=== PATIENT | female | born 1950 | race Caucasian/White ===

== ENCOUNTER 2018-06-16 08:46 | Day surgery (SDC) | payer MEDICARE ==
[2018-06-16] MEDS ORDERED: LIDOCAINE 2% INJ 100 MG/5 ML SDV (FOR ANES.) As Ordered (10:09)
[2018-06-16] MEDS ORDERED: fentaNYL 100 MCG/2 ML INJECTION (J3010) As Ordered (10:09)
[2018-06-16] MEDS ORDERED: PROPOFOL 200 MG/20 ML VIAL As Ordered ×2 (10:10)
== END 2018-06-16 11:24 | disposition home or self-care (01) ==
LOC: M OPP 08:46
DX: R12 Heartburn (principal); K22.8 Other specified diseases of esophagus; K44.9 Diaphragmatic hernia without obstruction or gangrene
CPT/HCPCS: 43239

== ENCOUNTER 2019-08-17 07:23 | Day surgery (SDC) | payer MEDICARE ==
[~2019-08-17] VITALS: Ht 149.9 cm; Wt 68.0 kg
[~2019-08-17 07:23] MED LIST: C-50TAB2 PO; CETI10CH PO; CITA20TA7 PO; GLIP2.5T6 PO; GLIP5TAB8 PO; K-TA10TA2 PO; MELA5TAB20 PO; METF500T13 PO; NAPR-885 PO; NS 1,000 ML IV ONE; PANT40TA3 PO; SIMV40TA20 PO; SYNT75TA PO
[2019-08-17] MEDS ORDERED: propofoL 200 MG/20 ML VIAL As Ordered ONE (07:27)
[2019-08-17] MEDS ORDERED: LIDOCAINE 2% INJ 100 MG/5 ML SDV (FOR ANES.) As Ordered ONE (07:27)
[2019-08-17] MEDS ORDERED: PHENYLephrine HCL 500 MCG/5 ML (100MCG/ML) SYRINGE (J2370) As Ordered ONE (08:42)
--- NOTE | 2019-08-17 08:55 | ROOR ---
Patient Name: Sheri Johnson Procedure Date: 08/17/2019 8:34 AM Date of : 1950 Age: 69 Room: [facility] Gender: Female Note Status: Finalized Procedure: Total Colonoscopy to Cecum Indications: Screening for colorectal malignant neoplasm Providers: Pierre Lilly MD Referring MD: MORAIMA HALE NP Requesting Provider: Medicines: Monitored Anesthesia Care Complications: No immediate complications. Procedure: Pre-Anesthesia Assessment: - The heart rate, respiratory rate, oxygen saturations, blood pressure, adequacy of pulmonary ventilation, and response to care were monitored throughout the procedure. The Colonoscope was introduced through the anus and advanced to the cecum, identified by appendiceal orifice and ileocecal valve. The colonoscopy was performed without difficulty. The patient tolerated the procedure well. The quality of the bowel preparation was excellent. Findings: The perianal and digital rectal examinations were normal. Non-bleeding internal hemorrhoids were found during retroflexion. The hemorrhoids were small and Grade I (internal hemorrhoids that do not prolapse). Multiple small and large-mouthed diverticula were found in the recto-sigmoid colon, sigmoid colon and descending colon. The exam was otherwise without abnormality on direct and retroflexion views. Impression: - Non-bleeding internal hemorrhoids. - Diverticulosis in the recto-sigmoid colon, in the sigmoid colon and in the descending colon. - The examination was otherwise normal on direct and retroflexion views. - No specimens collected. - The exam was otherwise normal to the cecum. Recommendation: - Patient has a contact number available for emergencies. The signs and symptoms of potential delayed complications were discussed with the patient. Return to normal activities tomorrow. Written discharge instructions were provided to the patient. - High fiber diet. - Discharge patient to home. - Continue present medications. - Repeat colonoscopy for symptoms only. - Return to referring physician. - The findings and recommendations were discussed with the patient's family. Pierre Lilly MD Pierre Lilly MD 08/17/2019 8:55:12 AM Electronically signed by Pierre Lilly MD Number of Addenda: 0 Note Initiated On: 08/17/2019 8:34 AM Estimated Blood Loss: Estimated blood loss: none.
[2019-08-17 09:16] VITALS: BP 126/62
== END 2019-08-17 09:19 | disposition home or self-care (01) ==
LOC: M OPP 07:23
PROVIDERS: ATTEND Internal Medicine Gastroenterology
DX: Z12.11 Encounter for screening for malignant neoplasm of colon (principal); K64.0 First degree hemorrhoids; K57.30 Diverticulosis of large intestine without perforation or abscess without bleeding; K21.9 Gastro-esophageal reflux disease without esophagitis; Z79.84 Long term (current) use of oral hypoglycemic drugs; Z79.899 Other long term (current) drug therapy
CPT/HCPCS: G0121; J2370

== ENCOUNTER → 2020-01-05 | Outpatient (CLI) | payer MEDICARE ==
[~2020-01-05] MED LIST changes: -NS 1,000 ML IV ONE
[2020-01-05 17:21] LABS: BASO % 0.4 % (0.0-1.0); EOS % 0.4 % (0.0-3.0); HEMATOCRIT 39.7 % (36.0-47.0); LYMPH % 29.9 % (24.0-44.0); MEAN CORPUSCULAR HEMOGLOBIN 29.6 pg (27.0-33.0); MEAN CORPUSCULAR HGB CONC 32.7 g/dl (32.0-36.5); MEAN CORPUSCULAR VOLUME 90.4 fl (80.0-96.0); MONO # 0.9 10^3/uL (0.0-0.8); MONO % 12.6 % (0.0-5.0); NEUTROPHILS # 3.8 10^3/uL (1.5-8.5); NEUTROPHILS % 56.3 % (36.0-66.0); PLATELET COUNT, AUTOMATED 193 10^3/uL (150-450); RED BLOOD COUNT 4.39 10^6/uL (4.00-5.40); WHITE BLOOD COUNT 6.7 10^3/uL (4.0-10.0)
[2020-01-05 17:50] LABS: BILIRUBIN,TOTAL 0.6 MG/DL (0.2-1.0); CALCIUM LEVEL 8.7 MG/DL (8.8-10.2); CREATININE FOR GFR 1.14 MG/DL (0.55-1.30); GLOMERULAR FILTRATION RATE 50.2 (>39); POTASSIUM SERUM 4.3 MEQ/L (3.5-5.1); TOTAL PROTEIN 7.6 GM/DL (6.4-8.2)
[2020-01-07 17:07] LABS: Lyme Disease IgG/IgM Antibodie <0.91 ISR (0.00-0.90); Lyme Disease IgM Ab Quantitati <0.80 index (0.00-0.79)
== END ==
LOC: M PLALAB 15:47
PROVIDERS: ATTEND Physician Assistant
DX: R21 Rash and other nonspecific skin eruption (principal)

== ENCOUNTER → 2021-08-02 | Outpatient (CLI) | payer MEDICARE ==
[~2021-08-02] MED LIST changes: +PANT40TA29 PO; -PANT40TA3 PO
== END ==
LOC: M WHC 10:54
PROVIDERS: ATTEND Registered Nurse
DX: Z12.31 Encounter for screening mammogram for malignant neoplasm of breast (principal)

== ENCOUNTER → 2021-11-06 | Outpatient (CLI) | payer MEDICARE | LOC: M WUC 11:06 | PROVIDERS: ATTEND Registered Nurse | DX: R05.9 Cough, unspecified (principal) ==

== ENCOUNTER → 2022-06-09 | Outpatient (CLI) | payer MEDICARE | LOC: M WHC 09:07 | PROVIDERS: ATTEND Registered Nurse | DX: R94.5 Abnormal results of liver function studies (principal) ==

== ENCOUNTER → 2022-10-03 | Outpatient (CLI) | payer MEDICARE | LOC: M WHC 13:52 | PROVIDERS: ATTEND Registered Nurse | DX: M85.89 Other specified disorders of bone density and structure, multiple sites (principal); Z12.31 Encounter for screening mammogram for malignant neoplasm of breast ==

== ENCOUNTER → 2022-11-07 | Outpatient (REF) | payer MEDICARE ==
[2022-11-07 13:46] LABS: IRON (FE) 57 UG/DL (50-170); PERCENT SATURATION 18.6 % (13.2-45.0); TOTAL IRON BINDING CAPACITY 307 UG/DL (250-425)
[2022-11-07 14:06] LABS: HEPATITIS B SURFACE ANTIGEN NEGATIVE (NEGATIVE)
[2022-11-07 14:28] LABS: HEPATITIS B CORE ANTIBODY IGM NEGATIVE (NEGATIVE)
== END ==
LOC: M LAB REF 12:16
PROVIDERS: ATTEND Physician Assistant Medical
DX: M81.0 Age-related osteoporosis without current pathological fracture (principal); R74.01 Elevation of levels of liver transaminase levels

== ENCOUNTER 2022-11-20 13:47 | Outpatient (RCR) | payer MEDICARE | END 2022-11-23 | LOC: M PT 13:47 | PROVIDERS: ATTEND Physician Assistant Medical | DX: R26.81 Unsteadiness on feet (principal) ==

== ENCOUNTER 2022-12-08 15:00 | Outpatient (RCR) | payer MEDICARE | END 2022-12-24 | LOC: M PT 15:00 | PROVIDERS: ATTEND Physician Assistant Medical | DX: R26.81 Unsteadiness on feet (principal) ==

== ENCOUNTER → 2023-02-20 | Outpatient (CLI) | payer MEDICARE ==
[~2023-02-20] MED LIST changes: -K-TA10TA2 PO; +POTA-165 PO
== END ==
LOC: M RAD 09:49
PROVIDERS: ATTEND Internal Medicine Cardiovascular Disease
DX: I71.40 Abdominal aortic aneurysm, without rupture, unspecified (principal); R09.89 Other specified symptoms and signs involving the circulatory and respiratory systems

== ENCOUNTER → 2023-03-23 | Outpatient (CLI) | payer MEDICARE | LOC: M WUC 12:08 | PROVIDERS: ATTEND Nurse Practitioner Family | DX: M19.011 Primary osteoarthritis, right shoulder (principal); M19.042 Primary osteoarthritis, left hand; M25.742 Osteophyte, left hand ==

== ENCOUNTER → 2023-03-23 | Outpatient (CLI) | payer MEDICARE ==
[2023-03-23 18:29] LABS: ALBUMIN 3.1 G/DL (3.2-5.2); BILIRUBIN,DIRECT 0.4 MG/DL (<0.4); CHOLESTEROL RISK RATIO 3.94 (<5); HDL CHOLESTEROL 59.6 MG/DL (>40); NON-HDL-C 175.4 MG/DL; TOTAL PROTEIN 6.8 G/DL (5.7-8.2)
== END ==
LOC: M WUC 13:22
PROVIDERS: ATTEND Internal Medicine Cardiovascular Disease
DX: E78.00 Pure hypercholesterolemia, unspecified (principal)

== ENCOUNTER → 2023-03-26 | Outpatient (CLI) | payer MEDICARE ==
[2023-03-26 08:53] LABS: HEMATOCRIT 37.4 % (36.0-47.0); HEMOGLOBIN 12.1 g/dl (12.0-15.5); MEAN CORPUSCULAR HEMOGLOBIN 30.1 pg (27.0-33.0); MEAN CORPUSCULAR HGB CONC 32.4 g/dl (32.0-36.5); PLATELET COUNT, AUTOMATED 165 10^3/uL (150-450); RED BLOOD COUNT 4.02 10^6/uL (4.00-5.40)
[2023-03-26 09:18] LABS: ALBUMIN 2.9 G/DL (3.2-5.2); BLOOD UREA NITROGEN 17 MG/DL (9-23); CALCIUM LEVEL 9.1 MG/DL (8.3-10.6); CARBON DIOXIDE LEVEL 27 MMOL/L (20-31); CHLORIDE LEVEL 110 MMOL/L (98-107); CREATININE FOR GFR 0.67 MG/DL (0.55-1.30); GLOMERULAR FILTRATION RATE > 60.0 (>39); GLUCOSE, FASTING 107 MG/DL (74-106); PHOSPHORUS LEVEL 3.8 MG/DL (2.4-5.1); POTASSIUM SERUM 4.1 MMOL/L (3.5-5.1); SODIUM LEVEL 144 MMOL/L (136-145)
== END ==
LOC: M LAB 08:22
PROVIDERS: ATTEND Internal Medicine Cardiovascular Disease
DX: R06.02 Shortness of breath (principal); I35.1 Nonrheumatic aortic (valve) insufficiency; I51.7 Cardiomegaly

== ENCOUNTER → 2024-03-17 | Outpatient (REF) | payer MEDICARE ==
[~2024-03-17] MED LIST changes: +GLIP5TAB17 PO; -GLIP5TAB8 PO
[2024-03-17 12:40] LABS: FERRITIN 28.5 NG/ML (7.3-270.7); PERCENT SATURATION 26.3 % (13.2-45.0)
== END ==
LOC: M LAB REF 11:30
PROVIDERS: ATTEND Physician Assistant Medical
DX: N18.31 Chronic kidney disease, stage 3a (principal); F03.90 Unspecified dementia, unspecified severity, without behavioral disturbance, psychotic disturbance, mood disturbance, and anxiety

== ENCOUNTER → 2025-04-19 | Outpatient (CLI) | payer MEDICARE ==
[~2025-04-19] MED LIST changes: +GLIP2.5T46 PO; -GLIP2.5T6 PO
== END ==
LOC: M WHC 13:52
PROVIDERS: ATTEND Physician Assistant Medical
DX: Z12.31 Encounter for screening mammogram for malignant neoplasm of breast (principal)

== ENCOUNTER → 2025-04-20 | Outpatient (CLI) | payer MEDICARE ==
[2025-04-20 11:16] LABS: FREE T4 1.11 NG/DL (0.89-1.76)
== END ==
LOC: M PLALAB 09:16
PROVIDERS: ATTEND Nurse Practitioner Family
DX: G47.33 Obstructive sleep apnea (adult) (pediatric) (principal); E07.9 Disorder of thyroid, unspecified

== ENCOUNTER → 2025-05-09 | Outpatient (CLI) | payer MEDICARE | LOC: M WHC 09:50 | PROVIDERS: ATTEND Physician Assistant Medical | DX: R92.8 Other abnormal and inconclusive findings on diagnostic imaging of breast (principal) ==

== ENCOUNTER → 2025-05-24 | Outpatient (CLI) | payer MEDICARE ==
[2025-05-24 07:59] VITALS: TEMP 99.1
[2025-05-24 09:02] VITALS: BP 128/62; O2SAT 95
== END ==
LOC: M WHCPRO 07:57
PROVIDERS: ATTEND Physician Assistant Medical
DX: C50.212 Malignant neoplasm of upper-inner quadrant of left female breast (principal); N63.22 Unspecified lump in the left breast, upper inner quadrant; R92.8 Other abnormal and inconclusive findings on diagnostic imaging of breast

== ENCOUNTER → 2025-06-07 | Outpatient (CLI) | payer MEDICARE | LOC: M PLALAB 12:11 | PROVIDERS: ATTEND Surgery | DX: Z85.3 Personal history of malignant neoplasm of breast (principal); Z80.3 Family history of malignant neoplasm of breast ==

== ENCOUNTER → 2025-06-29 | Outpatient (REF) | payer MEDICARE ==
[~2025-06-29] MED LIST changes: +EZET10TA57 PO
== END ==
LOC: M LAB REF 12:27
PROVIDERS: ATTEND Internal Medicine
DX: C50.412 Malignant neoplasm of upper-outer quadrant of left female breast (principal)

== ENCOUNTER → 2025-07-03 | Outpatient (CLI) | payer MEDICARE | LOC: M WHC 11:48 | PROVIDERS: ATTEND Nurse Practitioner Family | DX: I65.29 Occlusion and stenosis of unspecified carotid artery (principal) ==

== ENCOUNTER → 2025-07-04 | Outpatient (CLI) | payer MEDICARE ==
[2025-07-04 13:37] LABS: BASO # 0.0 10^3/uL (0.0-0.2); BASO % 0.8 % (0.0-1.0); EOS # 0.1 10^3/uL (0.0-0.5); EOS % 2.3 % (0.0-3.0); LYMPH # 1.4 10^3/uL (1.5-5.0); LYMPH % 39.9 % (24.0-44.0); MONO # 0.4 10^3/uL (0.0-0.8); MONO % 11.6 % (2.0-8.0); NEUTROPHILS # 1.6 10^3/uL (1.5-8.5); NEUTROPHILS % 45.4 % (36.0-66.0); PLATELET COUNT, AUTOMATED 173 10^3/uL (150-450)
[2025-07-04 14:20] LABS: ALT/SGPT 26.0 U/L (7.0-40); AST/SGOT 45.0 U/L (<34); CALCIUM LEVEL 8.9 MG/DL (8.3-10.6); CARBON DIOXIDE LEVEL 25.0 MMOL/L (20-31); CHLORIDE LEVEL 105.0 MMOL/L (98-107); CREATININE FOR GFR 0.76 MG/DL (0.55-1.30); GLOMERULAR FILTRATION RATE 81.2 (>39); MAGNESIUM LEVEL 1.8 MG/DL (1.8-2.4); POTASSIUM SERUM 3.8 MMOL/L (3.5-5.1); SODIUM LEVEL 140.0 MMOL/L (136-145)
[2025-07-10 08:22] LABS: METANEPHRINE PLASMA 25 pg/mL (<=57); NORMETANEPHRINE PLASMA 224 pg/mL (<=148); TOTAL FREE 249 pg/mL (<=205)
== END ==
LOC: M LAB 11:50
PROVIDERS: ATTEND Surgery
DX: Z15.09 Genetic susceptibility to other malignant neoplasm (principal); Z80.3 Family history of malignant neoplasm of breast; Z85.3 Personal history of malignant neoplasm of breast; C50.412 Malignant neoplasm of upper-outer quadrant of left female breast

== ENCOUNTER → 2025-07-12 | Outpatient (CLI) | payer MEDICARE | LOC: M PLALAB 10:40 | PROVIDERS: ATTEND Surgery | DX: Z15.09 Genetic susceptibility to other malignant neoplasm (principal) ==

== ENCOUNTER → 2025-07-13 | Outpatient (REF) | payer MEDICARE ==
[2025-07-18 12:07] LABS: METANEPHRINE TOTAL URINE 122 ug/L (Undefined); NORMETANEPHRINE TOTAL URINE 485 ug/L (Undefined)
[2025-07-26 16:09] LABS: METANEPHRINE URINE 85 ug/24 hr (36-209); NORMETANEPHRINE URINE 340 ug/24 hr (131-612)
== END ==
LOC: M LAB REF 16:45
PROVIDERS: ATTEND Surgery
DX: Z15.09 Genetic susceptibility to other malignant neoplasm (principal)